=== PATIENT | male | born 1965 | race Caucasian/White ===

== ENCOUNTER 2023-03-26 19:35 | Emergency (ER) | payer OTHER ==
[~2023-03-26] VITALS: Ht 180.3 cm; Wt 59.9 kg
[2023-03-26] MEDS ORDERED: IBUPROFEN 600MG TABLET PO ONE (20:00)
[2023-03-26] MEDS ORDERED: IBUP-2029 MT (21:51)
[2023-03-26] MEDS ORDERED: IBUPROFEN 600MG TABLET PO NR (23:00)
[2023-03-26 23:06] VITALS: BP 132/72
== END 2023-03-26 23:08 | disposition home or self-care (01) ==
LOC: ER 19:35
DX: R51.9 Headache, unspecified (principal); R68.84 Jaw pain; Z88.0 Allergy status to penicillin
CPT/HCPCS: 70486; 99284